=== PATIENT | female | born 1985 | race Caucasian/White ===

== ENCOUNTER → 2016-12-05 | Outpatient (CLI) | payer MEDICAID ==
[~2016-12-05] MED LIST: KEFLEX-DPS500 MG PO; MAALOX DPS30 ML PO; SURFAK DPS240 MG PO; SYNTHROID DPS0.2 MG PO; TYLENOL DPS325 MG PO
== END | disposition home or self-care (01) ==
LOC: EDT 12-02 08:15
DX: E11.9 Type 2 diabetes mellitus without complications (principal); Z71.3 Dietary counseling and surveillance